=== PATIENT | female | born 2000 | race Two or more races ===

== ENCOUNTER 2025-02-13 05:53 | Inpatient (IN) | payer OTHER ==
[~2025-02-13] VITALS: Ht 175.3 cm; Wt 4.1 kg
[2025-02-13 05:43] VITALS: BP 130/72
[2025-02-13] MEDS ORDERED: BETAMETHASONE ACETATE,SOD PHOS 30 MG/5 ML ML IM ONE (06:00)
[2025-02-13] MEDS ORDERED: AMPICILLIN SODIUM 2,000 MG VIAL IV ONE (06:00)
[2025-02-13] MEDS ORDERED: RINGERS SOLUTION,LACTATED 1,000 ML IV SCH (06:00)
[2025-02-13] MEDS ORDERED: OXYTOCIN 500 ML IV SCH (06:45)
[2025-02-13 06:49] LABS: MEAN PLATELET VOLUME 9.70 fl (9.4-12.4); NEUT % 62.9 % (34.0-71.1); RED CELL DISTRIBUTION WIDTH 14.0 % (11.6-14.4)
[2025-02-13 06:50] LABS: BASO % 0.2 % (0.1-1.2); EOS # 0.11 (0.04-0.54); EOS % 0.8 % (0.7-7.0); LYMPH # 3.43 (1.18-3.74); LYMPH % 25.7 % (19.3-53.1); MONO # 1.17 (0.24-0.82); MONO % 8.8 % (4.7-12.5); NEUT # 8.40 (1.56-6.13)
[2025-02-13 07:09] LABS: INR < 0.93
[2025-02-13 07:12] LABS: ALT/SGPT 15.0 U/L (12-78); AST/SGOT 14.0 U/L (15-37); BILIRUBIN TOTAL 0.56 mg/dL (0.3-1.2); BUN CREA RATIO 19.0 (7.0-25.0); CREATININE SERUM 0.52 mg/dL (0.55-1.02); GFR 142.54; GLOBULINA 4.0 G/DL (2.4-3.5); GLUCOSE FASTING 97.0 mg/dL (65-100); OSMOLALITY SERUM 278.0 MOSM/KG (275-295)
[2025-02-13 08:50] VITALS: BP 131/75
[2025-02-13] MEDS ORDERED: PNV,CALCIUM 72/IRON/FOLIC ACID 1 TAB TABLET PO SCH (09:00)
[2025-02-13 12:02] LABS: RH POSITIVE
[2025-02-13 12:50] LABS: BASO % 0.1 % (0.1-1.2); EOS # 0.00 (0.04-0.54); EOS % 0.0 % (0.7-7.0); LYMPH # 1.25 (1.18-3.74); LYMPH % 5.7 % (19.3-53.1); MEAN PLATELET VOLUME 9.90 fl (9.4-12.4); MONO # 0.44 (0.24-0.82); MONO % 2.0 % (4.7-12.5); NEUT # 20.05 (1.56-6.13); NEUT % 91.6 % (34.0-71.1); RED CELL DISTRIBUTION WIDTH 13.2 % (11.6-14.4)
[2025-02-13 15:40] VITALS: BP 134/82
[2025-02-13 19:57] VITALS: BP 129/84
[2025-02-14 00:19] VITALS: BP 129/86
[2025-02-14 04:17] VITALS: BP 133/85
[2025-02-14 08:26] VITALS: BP 125/80; O2SAT 98
[2025-02-14 12:03] VITALS: BP 116/53; O2SAT 98
[2025-02-14 16:18] VITALS: BP 120/70
[2025-02-15] VITALS: BP 122/85
[2025-02-15 09:04] VITALS: BP 129/80; O2SAT 98
[2025-02-15 09:08] LABS: hav igm Negative (Negative); hep b c Negative (Negative); hep b s ag Negative (Negative)
== END 2025-02-15 11:11 | disposition home or self-care (01) | DRG 807 ==
LOC: OB/GYN 05:53 → LDR 05:53 → OB/GYN 07:56
PROVIDERS: ADMIT Obstetrics & Gynecology; ATTEND Obstetrics & Gynecology
PROC: 10E0XZZ Delivery of Products of Conception, External Approach (ICD-10-PCS; principal; 2025-02-13)
PROC: 4A1HXCZ Monitoring of Products of Conception, Cardiac Rate, External Approach (ICD-10-PCS; 2025-02-13)
DX: O69.81X0 Labor and delivery complicated by cord around neck, without compression, not applicable or unspecified (principal); Z37.0 Single live birth; Z3A.39 39 weeks gestation of pregnancy